=== PATIENT | female | born 1975 | race Caucasian/White ===

== ENCOUNTER → 2019-07-26 17:35 | Outpatient (CLI) | payer BC, OTHER, SELFPAY ==
--- NOTE | ~2019-07-26 | MM_ITS ---
EXAMINATION: MM screening emili BI w donn HISTORY: Screening mammogram TECHNIQUE: Craniocaudal and mediolateral oblique 3-D tomosynthesis images were obtained and synthetic 2-D images were generated. CAD analysis was submitted and interpreted. COMPARISON: No prior mammogram is available for comparison at this institution. BREAST PARENCHYMAL COMPOSITION: There are scattered areas of fibroglandular density. FINDINGS: Fibroglandular asymmetry is noted without evidence of mass or architectural distortion. The re is no evidence of suspicious mass, calcification, or architectural distortion to suggest malignanc y in either breast. There has been no suspicious interval change. IMPRESSION: 1. No mammographic evidence of malignancy. 2. Recommend routine screening mammography in one year. BI-RADS Category 2: Benign finding(s). Reviewed, dictated and finalized at location [facility]. [facility]
== END ==
PROVIDERS: Visit Provider Obstetrics & Gynecology Gynecologic Oncology
DX: Z12.31 Encounter for screening mammogram for malignant neoplasm of breast (principal)
CPT/HCPCS: 77063; 77067

== ENCOUNTER 2023-03-11 01:54 | Day surgery (SDC) | payer OTHER, SELFPAY ==
[2023-02-25 08:57] VITALS: BMI 26.5
--- NOTE | 2023-03-10 18:20 | P.HP_ITS ---
History of Present Illness History of Present Illness Consent: Risks, benefits, and alternatives have been discussed and questions answered. Patient agrees to proceed with procedure. Chief complaint: neoplasm screening Narrative: Angy Demarco is a 47 year old female Referred for colon cancer screening. 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[employer] Gender identity (if verbalized by the patient): Female Spiritual care concerns: No Agree to blood products: Yes Meds Home Medications and Allergies Home Medications Medication Instructions Recorded Confirmed Type hydrocortisone 2.5 % topical cream 1 applic topical BID PRN skin 11/07/22 02/25/23 Rx irritation 7 days #30 grams trazodone 50 mg tablet See Rx Instructions .Route 01/29/23 02/25/23 Rx .COMPLEX #30 tabs citalopram 20 mg tablet 20 mg PO DAILY #90 tabs 02/05/23 02/25/23 Rx scopolamine base 1 mg over 3 days 1 patch transdermal Q3D PRN motion 02/05/23 02/25/23 Rx transdermal patch sickness #10 ea Allergies Allergy/AdvReac Type Severity Reaction Status Date / Time Sulfa (Sulfonamide Allergy Hives Verified 03/11/23 08:34 Antibiotics) Tetracyclines Allergy Hives Verified 03/11/23 08:34 Exam Const: General: alert Orientation/consciousness: patient oriented x3 Resp: Auscultation: clear to auscultation bilaterally Cardio: Rhythm: regular rhythm GI: GI Palp: Yes Soft to palpation and No Tenderness to palpation present (GI) Neuro: General: patient oriented x3 Assessment and Plan Assessment and plan (1) Colon cancer screening: Code(s): Z12.11 - Encounter for screening for malignant neoplasm of colon Status: Acute Assessment and Plan: Colonoscopy with possible biopsy or polypectomy or cautery or injection of substances.
[2023-03-11 08:41] VITALS: BP 125/84; PULSE 75; RESP 16; TEMP 36.2; O2SAT 100
[2023-03-11] MEDS: LACTATED RINGERS 1,000 ML 150 ML IV CONT (09:00)
--- NOTE | 2023-03-11 09:09 | WPDANESEPPF ---
Anes - Initial Pre Proc Eval Procedure: Operation Date: 03/11/23 10:00 Proposed Procedures p Screening Colonoscopy - Manjit Lopez MD Date/Time: 03/11/23 09:09 Surgeon: Manjit Lopez MD Pre Op Diagnosis: neoplasm screening Patient Data Age: 47 Gender: F Height: 1.55 m Weight: 63.9 kg Last Vital Signs Temp 36.2 C L 03/11/23 08:41 Pulse 75 03/11/23 08:41 Resp 16 03/11/23 08:41 BP 125/84 03/11/23 08:41 Pulse Ox 100 03/11/23 08:41 O2 Del Method Room Air 03/11/23 08:41 Allergies Allergy/AdvReac Type Severity Reaction Status Date / Time Sulfa (Sulfonamide Allergy Hives Verified 03/11/23 08:34 Antibiotics) Tetracyclines Allergy Hives Verified 03/11/23 08:34 Home Medications Medication Instructions Recorded Confirmed Type hydrocortisone 2.5 % topical cream 1 applic topical BID PRN skin 11/07/22 02/25/23 Rx irritation 7 days #30 grams trazodone 50 mg tablet See Rx Instructions .Route 01/29/23 02/25/23 Rx .COMPLEX #30 tabs citalopram 20 mg tablet 20 mg PO DAILY #90 tabs 02/05/23 02/25/23 Rx scopolamine base 1 mg over 3 days 1 patch transdermal Q3D PRN motion 02/05/23 02/25/23 Rx transdermal patch sickness #10 ea Patient hx anesthesia problems: none Family hx anesthesia problems: none Results Review: All pre-operative results and documents have been reviewed as part of the pre-operative evaluation. 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[employer] Gender identity (if verbalized by the patient): Female Spiritual care concerns: No Agree to blood products: Yes Anes - Evted Final PreProcedure Day of Procedure 03/11/23 09:09 Patient weight: overweight Heart: regular rate and rhythm Lungs: clear to auscultation Airway: Mallampati scale class II Neurological: alert and oriented Last oral intake: >/= 8 hours ASA classification: II Emergent: no Anesthetic plan: proceed Anesthesia type and monitoring: general GIVS and standard monitoring Results Review: All pre-operative results and documents have been reviewed as part of the pre-operative evaluation. Informed Consent: The patient's anesthetic plan and its attendant risks and benefits were discussed with the patient/family/POA. Questions were solicited and answers provided to the satisfaction of the patient/family/POA.
[2023-03-11 10:05] VITALS: BP 126/75; PULSE 72; RESP 16; O2SAT 99
[2023-03-11 10:15] VITALS: BP 126/86; PULSE 66; RESP 18; O2SAT 100
[2023-03-11 10:25] VITALS: BP 138/82; PULSE 62; RESP 14; O2SAT 100
== END 2023-03-11 10:30 | disposition home or self-care (01) ==
PROVIDERS: PCP Nurse Practitioner Family; Visit Provider Internal Medicine Gastroenterology
PROC: 0DJD8ZZ Inspection of Lower Intestinal Tract, Via Natural or Artificial Opening Endoscopic (ICD-10-PCS; CPT 45378; principal; 2023-03-11 10:00)
DX: Z12.11 Encounter for screening for malignant neoplasm of colon (principal); K64.8 Other hemorrhoids
CPT/HCPCS: 45378; J2704; J7120

== ENCOUNTER 2024-06-08 08:08 | Outpatient (CLI) | payer BC, SELFPAY ==
--- NOTE | ~2024-06-08 | MR_ITS ---
MRI of the lumbar spine Clinical History: Back pain Technique: Axial T2-weighted images, and sagittal T1-weighted, T2-weighted, and and T2 fat-sat images were acquired. Findings: There is no fracture in the lumbar spine. There is minimal grade 1 anterolisthesis of L4 ov er L5. No bone marrow signal abnormality seen. At L1-L2, L2-L3, L3-L4, there is no disc bulge or herniation. No spinal canal stenosis or neural fora shannen narrowing at these levels. There is minimal facet arthropathy at these levels. At L4-L5, there is mild disc space narrowing. There is mild disc bulge with severe facet arthropathy. There is mild central canal stenosis. Neural foramina are preserved. At L5-S1, there is moderate degenerative distended. There is mild disc bulge with moderate facet arth ropathy. No central canal stenosis or definite neural foraminal narrowing. Paravertebral soft tissues are unremarkable. Impression: Mild degenerative spondylosis, as above. Reviewed, dictated and finalized at [facility] M. [facility]UM[facility] Impression: Mild degenerative spondylosis, as above.
== END 2024-06-08 08:09 | disposition home or self-care (01) ==
PROVIDERS: PCP Nurse Practitioner Family; Visit Provider Nurse Practitioner Family
DX: M47.896 Other spondylosis, lumbar region (principal)
CPT/HCPCS: 72148